=== PATIENT | male | born 1945 | race Hispanic/Latino ===

== ENCOUNTER 2017-10-29 06:38 | Day surgery (SDC) | payer OTHER ==
[2017-10-29] MEDS ORDERED: ECOTRIN PO ONE (06:53)
[2017-10-29] MEDS ORDERED: NACL 0.9% 500 ML 500 ML IV SCH (07:00)
[2017-10-29 07:30] LABS: Basophils % (Auto) 0.5 % (0.0-1.8); Eosinophils # (Auto) 0.3 K/mm3 (0.0-0.4); Hematocrit 43.5 % (35.5-45.6); Hemoglobin 14.9 gm/dl (11.8-15.2); Lymphocytes # (Auto) 2.8 K/mm3 (1.2-5.4); Lymphocytes % (Auto) 36.4 % (13.4-35.0); Mean Corpuscular HGB Conc 34 % (32-34); Mean Corpuscular Hemoglobin 30 pg (28-32); Mean Corpuscular Volume 87 fl (84-94); Monocytes # (Auto) 1.1 K/mm3 (0.0-0.8); Monocytes % (Auto) 14.1 % (0.0-7.3); Platelet Count 188 K/mm3 (140-440); Red Blood Count 4.99 M/mm3 (3.65-5.03); Red Cell Distribution Width 14.2 % (13.2-15.2)
[2017-10-29 07:42] LABS: BUN/Creatinine Ratio 18; Blood Urea Nitrogen 16 mg/dL (9-20); Calcium 8.9 mg/dL (8.4-10.2); Hemolysis Index 6
[2017-10-29 07:43] LABS: INR 0.95 (0.87-1.13)
[2017-10-29] MEDS ORDERED: NITROGLYCERIN SYRINGE 0 ML ONE (08:22)
[2017-10-29] MEDS ORDERED: HEPARIN 10,000 UNITS/10 ML ONE (08:22)
[2017-10-29] MEDS ORDERED: CALAN ONE (08:22)
[2017-10-29] MEDS: SUBLIMAZE ONE ×2 (08:59→09:24)
[2017-10-29] MEDS: HEPARIN/NS 5000 UNIT/500ML(CATH LAB) 1,000 ML IR ONE ×2 (09:00→09:24)
[2017-10-29] MEDS: VERSED ONE ×2 (09:00→09:24)
[2017-10-29] MEDS: XYLOCAINE 2% INFILTRATI ONE ×2 (09:00→09:24)
[2017-10-29] MEDS ORDERED: NACL 0.9% 0 ML ONE (09:40)
[2017-10-29] MEDS ORDERED: ANGIOMAX IV ONE (09:41)
--- NOTE | 2017-10-29 10:32 | Short Stay Summary ---
Short Stay Documentation Date of service: 10/29/17 - History H&P: obtained from office - Allergies and Medications Current Medications: Allergies codeine Allergy (Intermediate, Verified 10/29/17 06:52) Nausea Home Medications Medication Instructions Recorded Confirmed Last Taken Type Citalopram [Celexa] 20 mg PO DAILY 10/29/17 10/29/17 10/28/17 History 20mg Clopidogrel Bisulfate [Plavix] 75 mg PO DAILY 10/29/17 10/29/17 10/28/17 History 75mg Ezetimibe [Zetia] 10 mg PO DAILY 10/29/17 10/29/17 10/28/17 History 10mg Levothyroxine [Synthroid] 75 mcg PO DAILY 10/29/17 10/29/17 10/28/17 History 75mcg Metoprolol Xl [Metoprolol 50 mg PO DAILY 10/29/17 10/29/17 10/29/17 06:00 History SUCCINATE ER TAB] 50mg Simvastatin [Zocor TAB] 20 mg PO DAILY 10/29/17 10/29/17 10/28/17 History 20mg metFORMIN [Glucophage] 500 mg PO DAILY 10/29/17 10/29/17 10/28/17 History 500mg Active Medications Sodium Chloride (Nacl 0.9% 500 Ml) 500 mls @ 50 mls/hr IV DIRECT BIB Stop: 10/29/17 16:59 Last Admin: 10/29/17 07:19 Dose: 50 mls/hr - Brief post op/procedure progress note Date of procedure: 10/29/17 Pre-op diagnosis: abnormal stress test Post-op diagnosis: same Procedure: C - see dictated cath report Anesthesia: local Estimated blood loss: none Condition: stable - Disposition Condition at discharge: Stable Disposition: -01 TO HOME OR SELFCARE - Discharge Diagnoses (1) Abnormal stress test Status: Chronic (2) CAD (coronary artery disease) Status: Chronic (3) Hx of CABG Status: Chronic (4) HTN (hypertension) Status: Chronic (5) Hyperlipidemia Status: Chronic Short Stay Discharge Plan Activity: advance as tolerated Diet: low fat, low cholesterol, low salt Wound: open to air, keep clean and dry, per your surgeon's advice Follow up with: ALONSO NEWTON MD [Primary Care Provider] - 7 Days ALLYSON DAVENPORT MD [Staff Physician] - 7 Days
--- NOTE | 2017-10-29 10:50 | Cardiac Catherization Report ---
CARDIAC CATHETERIZATION REFERRING PHYSICIAN: Dr. Gale Best. INDICATION FOR PROCEDURE: The patient is a very pleasant 72-year-old gentleman with history of coronary disease, CABG, hyperlipidemia, old myocardial infarction, who presents here with some shortness of breath, occasional chest pain, mostly atypical, has COPD on recent chest x-ray, CVA in 08/2017, hypertension, hyperlipidemia, recent stress test reveals inferoapical ischemia. He is on adequate medication/antianginals. Risks, benefits, alternatives explained at length prior to obtaining informed consent. PROCEDURE IN DETAIL: The patient was brought to the slab installer in a postabsorptive state, prepped and draped in sterile fashion, 8 mL of 2% lidocaine used to anesthetize the right groin. A standard 5-Bolivian sheath used to cannulate the right common femoral artery via modified Seldinger technique. All exchanges performed to exchange a J-tip guidewire. A JL5 catheter used to engage left main. No dampening or ventricularization. Cineangiography performed in all projections. A JR4 catheter used to engage the right coronary. No dampening or ventricularization. Cineangiography performed in multiple projections. He appears to have four different aortocoronary conduits. Multiple catheters were used. Eventually, three of them were directly engaged. Next, the catheter was used to engage the left subclavian. A FERRERA catheter was advanced carefully over wire to subselectively engage the FERRERA. Catheter was also carefully used to disengage from the left subclavian. Next, a pigtail catheter was used for left ventriculography and root aortography. Catheter removed from the body of wire, sheath removed. Manual pressure used to achieve hemostasis. No complications. The administration of moderate sedation with fentanyl and Versed. Sedation started 9:24 a.m. sedation ended at 10:04 a.m. FINDINGS: Aortic pressure is 150/80, LV pressure is 150, LVP of 20 mmHg. Left ventriculography revealed preserved LV function, estimated ejection fraction of 55% to 60%. No evidence of aortic stenosis. CORONARY ANATOMY: This is a right dominant system. Right coronary is flush occluded proximally, chronic total occlusion. The SVG to large right coronary is widely patent. Left main without significant disease, bifurcates in left anterior descending and left circumflex. Left circumflex is a small vessel occluded in the distal to mid segment. The LAD is occluded in the mid segment. FERRERA to LAD is patent, but small vessel disease noted distally. Root aortography was performed, does not reveal any further patent aortocoronary conduits. The aorta is mildly dilated. No significant aortic insufficiency. No evidence of dissection or penetrating aortic ulcer. Third order left subclavian angiographies are also performed. CONCLUSIONS: 1. Severe epicardial coronary disease with a chronic total occlusion of the mid LAD, distal to mid left circumflex and proximal right coronary. 2. Patent FERRERA to LAD with severe small vessel disease distally, patent SVG to RCA. Three occluded aortocoronary conduits. Likely to lateral wall and via diagonal and OM branches. 3. Preserved left ventricular systolic performance, estimated ejection fraction of 55% to 60%. 4. No evidence of aortic stenosis. 5. Root aortography as aforementioned. At this point, recommend intensification of medical therapy. Consider Ranexa therapy. Stable cardiac status. Follow up with Dr. Stella Best in the office. Standard groin care. JOB# [id number] SBM/NTS
[2017-10-29 14:33] VITALS: BP 116/72
== END 2017-10-29 14:42 | disposition home or self-care (01) ==
LOC: CATHLABREC 06:38
PROVIDERS: ATTEND Internal Medicine
DX: I25.10 Atherosclerotic heart disease of native coronary artery without angina pectoris (principal); J44.9 Chronic obstructive pulmonary disease, unspecified; I10 Essential (primary) hypertension; I25.2 Old myocardial infarction; E78.5 Hyperlipidemia, unspecified; Z95.1 Presence of aortocoronary bypass graft
CPT/HCPCS: 36415; 80048; 85025; 85610; 85730; 93005; 93010; 93459; 93567; 99156; 99157; C1769; C1894; J1644; J2250; J3010; J7040; J0583; Q9967